=== PATIENT | male | born 1975 | race American Indian/Alaskan Native ===

== ENCOUNTER 2017-03-10 05:05 | Emergency (ER) | payer MEDICAID ==
[2017-03-10] MEDS ORDERED: LIDOCAINE 1% 2 ML VIAL ONE (05:42)
[2017-03-10] MEDS ORDERED: AMOXICILLIN 250 MG CAPSULE PO STA (05:46)
[2017-03-10] MEDS ORDERED: HYDROcod/ACETAM 5/325 MG TABLET PO STA (05:46)
[2017-03-10] MEDS ORDERED: AMOXICILLIN 250 MG CAPSULE PO ONE (05:48)
[2017-03-10] MEDS ORDERED: HYDROcod/ACETAM 5/325 MG TABLET ONE (05:48)
--- NOTE | 2017-03-10 06:31 | ED Physician Documentation ---
History of Present Illness - Stated complaint Stated Complaint: Tooth Abcess - Chief complaint Chief Complaint: Heent - History obtained from History obtained from: Patient - Additonal information Additional information: Patient is a healthy 41-year-old male who presents with a complaint of right lower jaw pain and swelling of the lower lip around the angle of the mandible. He denies any systemic complaints such as fever or chills and has no nausea or vomiting. He says he has a follow-up dentistry appointment next week on Saturday. He does have a history of dental caries but otherwise is a healthy man. Review of systems: For pertinent positive and negatives in the review of systems please see history of present illness. Otherwise all other systems have been reviewed and are negative. Dragon disclaimer: Parts of this medical record were created using voice recognition technology. Because of the inherent limitations of this system occasional same sounding word substitutions do occur and persist despite proofreading. Please read the document for context. Review of Systems Constitutional: reports: Fever. denies: Chills Throat: denies: Sore throat PD PAST MEDICAL HISTORY - Past Medical History Past Medical History: No - Past Surgical History Past Surgical History: Yes - Present Medications Home Medications: Ambulatory Orders Medication Instructions Recorded Confirmed Amoxicillin 875 mg PO BID #14 tablet 03/10/17 HYDROcod/ACETAM 5/325 [Joes 5/325] 1 - 2 ea PO Q6H PRN #15 tablet 03/10/17 - Allergies Allergies/Adverse Reactions: Allergies Allergy/AdvReac Type Severity Reaction Status Date / Time No Known Drug Allergies Allergy Verified 03/10/17 05:16 - Social History Does the pt smoke?: No Smoking Status: Never smoker Does the pt drink ETOH?: No Does the pt have substance abuse?: No - Immunizations Immunizations are current?: Yes - POLST Patient has POLST: No PD ED PE NORMAL - Vitals Vital signs reviewed: Yes - General General: Alert and oriented X 3, No acute distress - HEENT HEENT: Atraumatic, PERRL, Other (Swelling with palpable small periodontal abscess adjacent to tooth #26 and 27) Results - Vitals Vitals: Vital Signs - 24 hr 03/10/17 05:10 Temperature 39.8 C H Heart Rate 99 Respiratory 18 Rate Blood Pressure 156/100 H O2 Saturation 98 Oxygen O2 Source Room air PD MEDICAL DECISION MAKING - ED course Complexity details: reviewed old records, reviewed results ED course: 41-year-old male presents with right lower jaw swelling. Has a history of dentalgia and dental caries has a dental appointment on Saturday of next week on examination he has a periodontal abscess next to 27. He does not feel completely right however an attempt was made at drainage. The area is infiltrated with approximately half cc of lidocaine 1% without epinephrine. A stab incision is made with a scalpel. There was some bleeding there is no clear -cut evidence of abscess drainage. I believe it might be a little early. He will continue to irrigate his mouth with saline and he will be placed on antibiotics. He agrees to watch his symptoms for any worsening. Disposition: To home Clinical impression: 1. Early periodontal abscess adjacent to tooth #627 status post incision and drainage Departure - Departure Disposition: Home, Self Care Clinical Impression: Acute periodontal abscess Condition: Good Instructions: ED Dental Abscess Facial Cellulitis Follow-Up: Roberth Saavedra [facility] [Provider Group] Prescriptions: Amoxicillin 875 mg PO BID #14 tablet HYDROcod/ACETAM 5/325 [Joes 5/325] 1 - 2 ea PO Q6H PRN #15 tablet PRN Reason: Pain
[2017-03-10 06:43] VITALS: BP 144/89
== END 2017-03-10 06:43 | disposition home or self-care (01) ==
LOC: ED 05:05
DX: K04.4 Acute apical periodontitis of pulpal origin (principal)
CPT/HCPCS: 41800; 99283; A9270

== ENCOUNTER 2019-07-25 19:07 | Emergency (ER) | payer SELFPAY ==
[2019-07-25] MEDS ORDERED: ACETAMINOPHEN 325 MG TABLET PO STA (19:22)
[2019-07-25] MEDS ORDERED: oxyCODONE 5 MG TABLET PO STA (19:22)
[2019-07-25] MEDS ORDERED: AMOX/CLAV 875 MG/125 MG TABLET PO STA (19:23)
[2019-07-25 19:36] VITALS: BP 156/111
--- NOTE | 2019-07-25 19:36 | ED Physician Documentation ---
History of Present Illness - Stated complaint Stated Complaint: TOOTH PX - Chief complaint Chief Complaint: Heent - Additonal information Additional information: This is a 43-year-old male who presents with tooth pain. Patient broke a piece of the tooth off on Halloween when he was eating a lollipop. Starting in the last day he has had sharp pain in the tooth that radiates upwards, and is Worse with temperature changes. He denies any facial swelling or fever, no trismus or neck pain. Review of Systems Constitutional: denies: Fever Throat: reports: Dental pain / toothache PD PAST MEDICAL HISTORY - Past Surgical History Past Surgical History: Yes - Present Medications Home Medications: Ambulatory Orders Medication Instructions Recorded Confirmed Amox/Clav 875/125 [Augmentin] 1 each PO Q12H #14 tablet 07/25/19 Benzocaine [Oral Pain Relief] 1 applic MM BID PRN #9.35 g 07/25/19 - Allergies Allergies/Adverse Reactions: Allergies Allergy/AdvReac Type Severity Reaction Status Date / Time No Known Drug Allergies Allergy Verified 07/25/19 19:13 - Social History Does the pt smoke?: No Smoking Status: Never smoker Does the pt drink ETOH?: No Does the pt have substance abuse?: No - Immunizations Immunizations are current?: Yes - POLST Patient has POLST: No PD ED PE NORMAL - General General: Alert and oriented X 3, No acute distress - HEENT HEENT: Other (Patient's right upper frontal molar has an obvious area of decay, there is no gingival abscess, no purulent drainage. There are signs of ex tensive dental work throughout the mouth. Normal range of motion of jaw) - Neck Neck: Supple, no meningeal sign, Other (Normal range of motion.) - Respiratory Respiratory: No respiratory distress - Neuro Neuro: Alert and oriented X 3 - Psych Psych: Normal mood, Normal affect Results - Vitals Vitals: Vital Signs - 24 hr 07/25/19 19:10 Temperature 36.6 C Heart Rate 79 Respiratory 15 Rate Blood Pressure 150/119 H O2 Saturation 98 Oxygen O2 Source Room air PD MEDICAL DECISION MAKING - ED course ED course: Patient presents with dental pain, he has a tooth with obvious signs of decay, no signs of drainable abscess or deeper infection at this time. I discussed with him that he likely has a pulpitis given his sensitivity to temperature changes, we started antibiotics and gave a dose of oxycodone here. I prescribed him Orajel with instructions on its use, as well as a course of augmentin. I recommended close dentist follow-up, he agrees and will call this Saturday for an appointment. I discussed return precautions and patient was discharged home Departure - Departure Disposition: , Self Care Clinical Impression: Acute pulpitis Condition: Good Instructions: ED Tooth Pain Prescriptions: Amox/Clav 875/125 [Augmentin] 1 each PO Q12H #14 tablet Benzocaine [Oral Pain Relief] 1 applic MM BID PRN #9.35 g PRN Reason: Toothache Comments: You have a broken tooth that appears to have an infection in the pulp of the tooth. Please take the antibiotic as prescribed, you may also apply the Orajel to the tooth that hurts, you may also you continue to use Tylenol and ibuprofen for discomfort. Follow-up with a dentist as soon as possible. If you are developing new symptoms such as fever, redness or swelling of your face, or other concerning symptoms return to the emergency department
== END 2019-07-25 19:36 | disposition home or self-care (01) ==
LOC: ED 19:07
DX: K04.01 Reversible pulpitis (principal); S02.5XXA Fracture of tooth (traumatic), initial encounter for closed fracture; X58.XXXA Exposure to other specified factors, initial encounter; K02.9 Dental caries, unspecified
CPT/HCPCS: 99282; 99283; A9270

== ENCOUNTER 2020-05-21 16:05 | Emergency (ER) | payer OTHER ==
[2020-05-21] MEDS ORDERED: MELOXICAM 7.5 MG TABLET PO STA (17:34)
--- NOTE | 2020-05-21 17:37 | ED Physician Documentation ---
History of Present Illness - Stated complaint Stated Complaint: LT ARM INJ - Chief complaint Chief Complaint: Trauma Ext - History obtained from History obtained from: Patient - History of Present Illness Timing: Today Pain level max: 7 Pain level now: 4 - Additonal information Additional information: L arm pain s/p diving for his child on the stairs today. Patient states that an object hit the lower portion of the biceps tendon. Worse with movement and better with rest. He is currently wearing a sling. Patient is right-handed Review of Systems Constitutional: denies: Fever, Chills GI: denies: Vomiting, Diarrhea Skin: denies: Rash Musculoskeletal: denies: Neck pain Neurologic: denies: Headache, Head injury PD PAST MEDICAL HISTORY - Past Medical History Past Medical History: Yes - Past Surgical History Past Surgical History: Yes - Present Medications Home Medications: Ambulatory Orders Medication Instructions Recorded Confirmed Amox/Clav 875/125 [Augmentin] 1 each PO Q12H #14 tablet 07/25/19 Benzocaine [Oral Pain Relief] 1 applic MM BID PRN #9.35 g 07/25/19 Meloxicam [Mobic] 7.5 mg PO BID PRN #20 tablet 05/21/20 - Allergies Allergies/Adverse Reactions: Allergies Allergy/AdvReac Type Severity Reaction Status Date / Time No Known Drug Allergies Allergy Verified 05/21/20 16:13 - Social History Does the pt smoke?: No Smoking Status: Never smoker Does the pt drink ETOH?: No Does the pt have substance abuse?: No - Family History Family history: reports: Non contributory - Immunizations Immunizations are current?: Yes - POLST Patient has POLST: No PD ED PE NORMAL - Vitals Vital signs reviewed: Yes - General General: Alert and oriented X 3, No acute distress - HEENT HEENT: Moist mucous membranes - Neck Neck: Supple, no meningeal sign - Extremities Extremities: Other (L upper arm - TTP over the biceps tendon at the AC fossa. able to supinate and pronate the arm against resistance. NVI.) - Neuro Neuro: Alert and oriented X 3 - Psych Psych: Normal mood, Normal affect Results - Vitals Vitals: Vital Signs - 24 hr 05/21/20 05/21/20 16:11 17:48 Temperature 36.4 C L Heart Rate 111 H 82 Respiratory 16 16 Rate Blood Pressure 133/92 H 185/100 H O2 Saturation 96 98 Oxygen O2 Source Room air PD MEDICAL DECISION MAKING - ED course Complexity details: considered differential, d/w patient ED course: Patient with possible biceps tendinitis versus partial tear. Does not appear to be a complete rupture at this time. Santi bandage applied for compression and placed in a sling. We will have him follow-up with orthopedics for repeat evaluation when the swelling and pain have decreased. Neurovascular intact. No indication for x-ray at this time. Patient counseled regarding signs and symptoms for which I believe and urgent re-evaluation would be necessary. Patient with good understanding of and agreement to plan and is comfortable going home at this time This document was made in part using voice recognition software. While efforts are made to proofread this document, sound alike and grammatical errors may occur. Departure - Departure Disposition: 01 Home, Self Care Clinical Impression: Biceps tendinitis on left Condition: Good Instructions: Biceps Tendonitis Distal Follow-Up: [facility] [Provider Group] - Within 1 week Prescriptions: Meloxicam [Mobic] 7.5 mg PO BID PRN #20 tablet PRN Reason: Pain Comments: Orthopedics in 1 week for repeat evaluation. You should limit your use of the arm for the next several days. The Santi bandage will help with swelling. The sling will help with discomfort. Return if you worsen. It is difficult to tell if there is a fall or potentially partial tear at this time. Orthopedics will reevaluate you once the swelling has decreased. Forms: Activity restrictions Discharge Date/Time: 05/21/20 17:48
[2020-05-21 17:51] VITALS: BP 185/100
== END 2020-05-21 17:48 | disposition home or self-care (01) ==
LOC: ED 16:05
DX: M75.22 Bicipital tendinitis, left shoulder (principal); W10.8XXA Fall (on) (from) other stairs and steps, initial encounter; W22.8XXA Striking against or struck by other objects, initial encounter; Y93.F9 Activity, other caregiving
CPT/HCPCS: 99282; 99284; A9270

== ENCOUNTER 2020-08-26 19:38 | Emergency (ER) | payer OTHER ==
[2020-08-26 19:58] VITALS: BP 137/91
[2020-08-26] MEDS ORDERED: IBUPROFEN 800 MG TABLET PO STA (20:31)
[2020-08-26] MEDS ORDERED: PENICILLIN VK 250 MG TABLET PO STA (20:31)
--- NOTE | 2020-08-26 20:32 | ED Physician Documentation ---
PD HPI HEENT - Stated complaint Stated Complaint: TOOTH PX - Chief complaint Chief Complaint: Heent - History obtained from History obtained from: Patient - History of Present Illness Timing - onset: Today Timing - duration: Days Timing - details: Gradual onset Pain level max: 9 Pain level now: 9 Location: Tooth Associated symptoms: No: Fever, Swollen nodes, Facial swelling - Additional information Additional information: 44-year-old male presents to the emergency department with dental pain. This is been ongoing for some time, worsening today. His left lower molar that has been giving him problems for years. Worse with eating and drinking, nothing makes it better. No fevers. No facial swelling or congestion. Has not followed up with his dentist yet. Review of Systems Constitutional: denies: Fever, Chills GI: denies: Vomiting Skin: denies: Rash Musculoskeletal: denies: Neck pain, Back pain PD PAST MEDICAL HISTORY - Past Medical History Past Medical History: No - Past Surgical History Past Surgical History: Yes - Present Medications Home Medications: Ambulatory Orders Medication Instructions Recorded Confirmed Ibuprofen [Motrin] 800 mg PO Q8H PRN #30 tablet 08/26/20 Penicillin V Potassium 500 mg PO Q6HR #40 tablet 08/26/20 - Allergies Allergies/Adverse Reactions: Allergies Allergy/AdvReac Type Severity Reaction Status Date / Time No Known Drug Allergies Allergy Verified 08/26/20 19:58 - Social History Does the pt smoke?: No Smoking Status: Never smoker Does the pt drink ETOH?: No Does the pt have substance abuse?: No - Immunizations Immunizations are current?: Yes - POLST Patient has POLST: No PD ED PE NORMAL - Vitals Vital signs reviewed: Yes - General General: Alert and oriented X 3, No acute distress - HEENT HEENT: Moist mucous membranes - Neck Neck: Supple, no meningeal sign - Cardiac Cardiac: RRR - Respiratory Respiratory: No respiratory distress, Clear bilaterally - Derm Derm: Warm and dry - Neuro Neuro: Alert and oriented X 3 PD ED PE EXPANDED - HEENT HEENT Visual: 1 - swelling, tenderness (No drainable abscess. In the molar is ground down to the level of the gumline.) Results - Vitals Vitals: Vital Signs - 24 hr 08/26/20 19:50 Temperature 36.7 C Heart Rate 59 L Respiratory 16 Rate Blood Pressure 137/91 H O2 Saturation 97 Oxygen O2 Source Room air PD MEDICAL DECISION MAKING - ED course Complexity details: considered differential, d/w patient ED course: Patient with chronic dental caries and dental pain. Will place on antibiotics and have him follow-up with his dentist. It was placed over what was left of the tooth. Patient counseled regarding signs and symptoms for which I believe and urgent re-evaluation would be necessary. Patient with good understanding of and agreement to plan and is comfortable going home at this time This document was made in part using voice recognition software. While efforts are made to proofread this document, sound alike and grammatical errors may occur. Normal phonation. No trismus. No Michael's angina. No abscess. Departure - Departure Disposition: 01 Home, Self Care Clinical Impression: Pain due to dental caries Condition: Good Instructions: ED Tooth Pain Follow-Up: your,dentist this week [Other] Prescriptions: Penicillin V Potassium 500 mg PO Q6HR #40 tablet Ibuprofen [Motrin] 800 mg PO Q8H PRN #30 tablet PRN Reason: PAIN &/OR FEVER Comments: You need to follow-up with a dentist for further care of your tooth. Return if you worsen including swelling, fevers or worsening symptoms. Discharge Date/Time: 08/26/20 20:41
== END 2020-08-26 20:41 | disposition home or self-care (01) ==
LOC: ED 19:38
DX: K02.9 Dental caries, unspecified (principal)
CPT/HCPCS: 99282; 99284; A9270

== ENCOUNTER 2022-06-07 09:29 | Outpatient (CLI) | payer OTHER ==
[2022-06-07 23:17] LABS: CHLAMYDIA TRACHOMATIS DNA NEGATIVE (NEGATIVE); NEISSERIA GONORRHOEAE DNA NEGATIVE (NEGATIVE)
[2022-06-08 08:10] LABS: HCV AB <0.1 s/co ratio (0.0-0.9); RPR Non Reactive (Non Reactive)
[2022-06-09 00:10] LABS: HIV SCREEN 4TH GENERATION Non Reactive (Non Reactive)
== END 2022-06-07 23:59 | disposition home or self-care (01) ==
LOC: LAB.N 09:29
PROVIDERS: ATTEND Registered Nurse
DX: Z20.2 Contact with and (suspected) exposure to infections with a predominantly sexual mode of transmission (principal)
CPT/HCPCS: 36415; 86592; 86695; 86696; 86803; 87389; 87491; 87591; 87661

== ENCOUNTER 2023-12-24 09:01 | Outpatient (CLI) | payer OTHER ==
--- NOTE | 2023-12-24 15:01 | XRAY Report ---
PROCEDURE: Lumbar Spine 2-3V INDICATIONS: LOW BACK PAIN TECHNIQUE: 2 views of the lumbar spine were acquired. COMPARISON: None. FINDINGS: Bones: 5 [id number] vertebrae are present. Anterolisthesis of L5 on S1 measuring 1.4 cm. Bilate ral L5 pars defect suspected. Lower lumbar spine facet joint hypertrophy. Osteophytic lipping. No avelina tebral body compression fractures. No suspicious bony lesions. Soft tissues: Overlying bowel gas pattern is normal. No suspicious soft tissue calcifications. IMPRESSION: Anterolisthesis of L5 on S1 measuring 1.4 cm. Bilateral L5 pars defect. Mild degenerative changes. Reviewed by: Zachariah Thompson MD on 12/24/2023 3:00 PM PDT Approved by: Zachariah Thompson MD on 12/24/2023 3:00 PM PDT Station ID: [id number]
== END 2023-12-24 09:02 | disposition home or self-care (01) ==
LOC: DI.N 09:01
PROVIDERS: ATTEND Internal Medicine
DX: M47.816 Spondylosis without myelopathy or radiculopathy, lumbar region (principal); M43.17 Spondylolisthesis, lumbosacral region

== ENCOUNTER 2024-02-26 21:25 | Emergency (ER) | payer OTHER ==
[2024-02-26 21:44] VITALS: BP 186/114; O2SAT 99
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
[2024-02-26] MEDS: TETANUS/DIPHTHERIA/PERTUSSIS 0.5 ML SYRINGE IM ONE (22:44)
== END 2024-02-26 22:59 | disposition home or self-care (01) ==
LOC: ED 21:25
DX: S80.212A Abrasion, left knee, initial encounter (principal); S80.211A Abrasion, right knee, initial encounter; W18.39XA Other fall on same level, initial encounter; Z23 Encounter for immunization; I10 Essential (primary) hypertension
CPT/HCPCS: 90471; 99283

== ENCOUNTER 2024-03-18 07:46 | Outpatient (CLI) | payer OTHER ==
--- NOTE | 2024-03-18 22:09 | XRAY Report ---
PROCEDURE: Knee 3V LT INDICATIONS: L KNEE PAIN, L ARM PAIN TECHNIQUE: 3 views of the knee(s) were acquired. COMPARISON: None. FINDINGS: Bones: No fractures or dislocations. No suspicious bony lesions. Distal femoral as well as proxim al tibial fixation beba and screws are present. Hardware is intact without evidence of hardware fractu re or periprosthetic lucency to suggest loosening. Soft tissues: Mild to moderate knee joint effusion. No suspicious soft tissue calcifications or mass es. IMPRESSION: No visualized acute fracture or dislocation. However, occult injury cannot be excluded. Recommend raven rt interval imaging follow-up in 7-10 days as clinically indicated for additional evaluation. Reviewed by: Pilar Mcnamara MD on 03/18/2024 10:08 PM PDT Approved by: Pilar Mcnamara MD on 03/18/2024 10:08 PM PDT Station ID: [id number]
--- NOTE | 2024-03-18 22:10 | XRAY Report ---
PROCEDURE: Forearm LT INDICATIONS: L ARM PAIN TECHNIQUE: 2 views of the forearm were acquired. COMPARISON: None. FINDINGS: Bones: No fractures or dislocations. No suspicious bony lesions. Soft tissues: No suspicious soft tissue calcifications or masses. IMPRESSION: No visualized acute fracture or dislocation. However, occult injury cannot be excluded. Recommend raven rt interval imaging follow-up in 7-10 days as clinically indicated for additional evaluation. Reviewed by: Pilar Mcnamara MD on 03/18/2024 10:08 PM PDT Approved by: Pilar Mcnamara MD on 03/18/2024 10:08 PM PDT Station ID: [id number]
== END 2024-03-18 07:47 | disposition home or self-care (01) ==
LOC: DI.N 07:46
PROVIDERS: ATTEND Internal Medicine
DX: M25.562 Pain in left knee (principal); M79.602 Pain in left arm